=== PATIENT | male | born 1975 | race Caucasian/White ===

== ENCOUNTER 2017-01-23 10:41 | Emergency (ER) | payer MEDICARE, MEDICAID ==
[~2017-01-23] VITALS: Ht 180.3 cm; Wt 90.0 kg
[2017-01-23 13:23] VITALS: BP 124/78
== END 2017-01-23 13:25 | disposition home or self-care (01) ==
LOC: ER 11:01
DX: S02.2XXA Fracture of nasal bones, initial encounter for closed fracture (principal); Z88.0 Allergy status to penicillin; Y09 Assault by unspecified means
CPT/HCPCS: 70450; 70486; 72125; 99284